=== PATIENT | female | born 1990 | race Caucasian/White ===

== ENCOUNTER 2020-08-21 11:00 | Emergency (ER) | payer BC ==
[~2020-08-21] VITALS: Ht 170.2 cm; Wt 58.6 kg
[2020-08-21 12:16] LABS: BASOPHILS % (AUTO) 1 % (0-1); EOSINOPHILS % (AUTO) 0 % (1-7); LYMPHOCYTES % (AUTO) 13 % (22-44); MEAN PLATELET VOLUME 9.6 fL (7.4-10.4); MONOCYTES % (AUTO) 5 % (2-9); NEUTROPHILS % (AUTO) 81 % (42-75); PLATELET COUNT 196 x10^3/uL (130-400); RED BLOOD COUNT 4.31 x10^6/uL (3.82-5.3); RED CELL DISTRIBUTION WIDTH 14.5 % (9.6-15.2)
[2020-08-21 12:24] LABS: ALBUMIN 3.2 g/dL (3.4-5.0); ANION GAP 10 mmol/L (5-15); CALCIUM 8.7 mg/dL (8.5-10.1); CHLORIDE 108 mmol/L (98-107); CREATININE 0.55 mg/dL (0.55-1.02)
--- NOTE | 2020-08-21 12:32 | NUR ---
PT HAVING BEDSIDE US
[2020-08-21] MEDS ORDERED: ONDANSETRON 2MG/ML, 2ML IVPush ONE (13:00)
[2020-08-21] MEDS ORDERED: ONDANSETRON ODT 4 MG ONE (13:05)
--- NOTE | 2020-08-21 13:24 | NUR ---
PT ABLE TO AMBULATE STEADILY TO THE BATHROOM TO PROVIDE A URINE SAMPLE. URINE WALKED TO LAB.
[2020-08-21] MEDS ORDERED: ONDANSETRON ODT 4 MG PO ONE ×2 (13:30)
[2020-08-21 13:40] LABS: MICROSCOPIC INDICATED
[2020-08-21 15:16] VITALS: BP 112/69
== END 2020-08-21 16:18 | disposition home or self-care (01) ==
LOC: ED 15:29
DX: O26.892 Other specified pregnancy related conditions, second trimester (principal); R10.2 Pelvic and perineal pain; O44.42 Low lying placenta NOS or without hemorrhage, second trimester; Z3A.18 18 weeks gestation of pregnancy
CPT/HCPCS: 36415; 76815; 80048; 81001; 82040; 85025; 96374; 99284; J2405